=== PATIENT | female | born 1990 | race Two or more races ===

== ENCOUNTER 2019-04-02 06:57 | Emergency (ER) | payer OTHER ==
[2019-04-02 07:03] VITALS: TEMP 98.1; BMI 39.1
[2019-04-02] MEDS ORDERED: ACETAMINOPHEN 1000 MG/100 ML VIAL (NON FORMULARY) IVPB ONE (07:24)
[2019-04-02] MEDS ORDERED: ACETAMINOPHEN INJECTION 100 ML IVPB ONE (07:27)
[2019-04-02] MEDS ORDERED: morphine SULFATE 4 MG/ML VIAL ONE (07:36)
[2019-04-02] MEDS ORDERED: morphine CARPU-JECT 4 MG/1 ML DISP.SYRIN IVPUSH ONE (07:39)
--- NOTE | 2019-04-02 07:46 | PDOC ---
History of Present Illness - General Chief Complaint: Vaginal Bleeding Stated Complaint: ABD PAIN/ R/O MISSCARRIAGE Time Seen by Provider: 04/02/19 07:14 History Source: Patient Exam Limitations: No Limitations - History of Present Illness Initial Comments: 04/02/19 07:41 [id number] who is , roughly 11 weeks by LMP and took positive home test x1 in mid-March, who p/w vaginal bleeding and lower abdominal cramping since last night, severe today. Non-radiating, always present, fluctuating up to 10/10, never had this pain before. She has been having medium red vaginal bleeding with clots but no white material. No f/c/n/v/d/c, dysuria, or other symptoms. She has not been taking PNV, no OB care yet, has not had an ultrasound or seen any provider for this Past History - Past Medical History Allergies/Adverse Reactions: Allergies Allergy/AdvReac Type Severity Reaction Status Date / Time No Known Allergies Allergy Verified 04/02/19 07:03 Home Medications: Ambulatory Orders Prenat 115/Iron Fum/Folic/Dss [ 19 Tablet] 1 each PO DAILY 04/02/19 - Psycho Social/Smoking Cessation Hx Smoking History: Never smoked Hx Alcohol Use: No Drug/Substance Use Hx: No Review of Systems - Review of Systems Able to Perform ROS?: Yes Comments:: 04/02/19 09:00 GEN: no fever, chills, night sweats, generalized weakness, malaise, or unintentional weight change HEENT: no ear pain, congestion, sore throat, rhinorrhea, nosebleed, vision change, or eye pain CV: no chest pain, palpitations, lightheadedness, syncope, edema, or exercise intolerance RESP: no cough, wheezing, or SOB GI: abdominal pain, no nausea, vomiting, diarrhea, constipation, appetite change , or white/black/bloody stool : vaginal bleeding with clots, no dysuria, hematuria, frequency, incontinence , retention, or pruritis MSK: no muscle weakness or pain, no muscle wasting, no joint swelling or pain NEURO: no headache, seizure, vertigo, imbalance, numbness, tingling, focal weakness, or difficulty walking/talking PSYCH: no insomnia, behavior change, SI, HI, or substance use SKIN: no prutitis, excessive dryness, jaundice, rash, cuts, or unexplained bruises ROS otherwise negative except as noted in HPI *Physical Exam - Vital Signs Last Vital Signs Temp Pulse Resp BP Pulse Ox 98.1 F 64 18 133/76 98 04/02/19 06:57 04/02/19 06:57 04/02/19 06:57 04/02/19 06:57 04/02/19 06:57 - Physical Exam 04/02/19 09:02 GENERAL: uncomfortable appearing, intermittently writhing in pain, but answering questions appropriately HEENT: PERRLA, EOMI, moist mucous membranes NECK/BACK: no midline ttp, no spinal stepoff or deformity, no hematoma, full ROM , neck supple CARDIOVASCULAR: regular rate/rhythm, normal S1S2, no MGR, strong peripheral pulses, capillary refill <2 seconds, extremities wwp, no edema LUNGS/RESPIRATORY: no respiratory distress, CTAB GI/ABDOMEN: symmetric yels-ky-vuyc, normoactive BS, soft, moderate suprapubic ttp, no midline pulsatile masses : no CVA tenderness, pelvic with small amount of medium red blood externally and in the vaginal vault, os is 1 cm open and there is endocervical blood clot, no focal tenderness on bimanual but diffusely mildly tender EXTREMITIES: no muscle atrophy, no acute deformity SKIN: warm and dry, no pallor, no jaundice, no rash, no bruising, no skin breakdown, no cuts, no lesions NEUROLOGICAL: GCS 15, CN II-XII grossly intact, 5/5 strength proximally and distally, no facial droop ED Treatment Course - LABORATORY CBC & Chemistry Diagram: 04/02/19 07:51 04/02/19 07:51 - RADIOLOGY Radiology Studies Ordered: Category Date Time Status TRANSVAGINAL US PREG [US] Stat Ultrasound 04/02/19 07:24 Ordered Medical Decision Making - Medical Decision Making 04/02/19 07:43 First trimester female p/w vaginal bleeding and lower abdominal pain at <20 wks gestation. Initial Vital Signs Temp Pulse Resp BP Pulse Ox 98.1 F 64 18 133/76 98 04/02/19 06:57 04/02/19 06:57 04/02/19 06:57 04/02/19 06:57 04/02/19 06:57 Exam: As noted in Physical Exam section. DDX IBNLT: threatened/inevitable/incomplete/complete/septic , ectopic, PID, TOA/cervicitis, endometritis, ruptured ovarian cyst, ovarian torsion, malignancy, menorrhagia, endometriosis, rectal bleed, hematuria, constipation, fibroids, etc. W/U ordered: CBCD CMP Coags T&S UA UCx hCG Quant TVUS. TX ordered: Ofirmev, Morphine, IVF US/TRANSVAGINAL US PREG Transvaginal obstetrical ultrasound Clinical information : miscarriage The exam demonstrates a single nonviable intrauterine gestation at 8 weeks 6 days (crown-rump length 2.2 cm). No embryonic cardiac activity is identified. The gestational sac is located within the lower uterine segment extending partially into the cervical canal. The cervical canal is shortened measuring 0.7 cm in length. No subchorionic implication bleed is seen. There is no obvious uterine pathology. The ovaries appear unremarkable. No free intraperitoneal fluid is seen. Impression: Embryonic demise as noted above. 04/02/19 08:20 Patient passed POC in bathroom including intact fetus, feels much better. 04/02/19 09:11 Repeat bimanual exam os is closed, small amount of bright blood on glove. Patient remains pain free, states light cramping intermittently. Laboratory Tests 04/02/19 04/02/19 04/02/19 07:51 07:51 07:51 WBC 9.3 RBC 4.66 Hgb 13.7 Hct 39.5 MCV 84.9 MCH 29.3 MCHC 34.6 RDW 14.4 Plt Count 201 MPV 9.9 Absolute Neuts (auto) 8.0 Neutrophils % 85.6 H Lymphocytes % 8.5 Monocytes % 5.1 Eosinophils % 0.5 Basophils % 0.3 Nucleated RBC % 0 PT with INR 10.70 INR 0.91 Sodium 139 Potassium 3.4 L Chloride 109 H Carbon Dioxide 17 L Anion Gap 13 BUN 14.2 Creatinine 0.6 Est GFR (CKD-EPI)AfAm 144.78 Est GFR (CKD-EPI)NonAf 124.92 Random Glucose 120 H Calcium 9.4 Total Bilirubin 0.3 AST 17 ALT 22 Alkaline Phosphatase 79 Total Protein 7.7 Albumin 4.0 Urine Color Urine Appearance Urine pH Ur Specific [place] Urine Protein Urine Glucose (UA) Urine Ketones Urine Blood Urine Nitrite Urine Bilirubin Urine Urobilinogen Ur Leukocyte Esterase Urine WBC (Auto) Urine RBC (Auto) Urine Casts (Auto) U Epithel Cells (Auto) Urine Bacteria (Auto) 04/02/19 08:15 WBC RBC Hgb Hct MCV MCH MCHC RDW Plt Count MPV Absolute Neuts (auto) Neutrophils % Lymphocytes % Monocytes % Eosinophils % Basophils % Nucleated RBC % PT with INR INR Sodium Potassium Chloride Carbon Dioxide Anion Gap BUN Creatinine Est GFR (CKD-EPI)AfAm Est GFR (CKD-EPI)NonAf Random Glucose Calcium Total Bilirubin AST ALT Alkaline Phosphatase Total Protein Albumin Urine Color [place] Urine Appearance Cloudy Urine pH 7.0 Ur Specific [place] 1.024 Urine Protein 1+ H Urine Glucose (UA) Negative Urine Ketones Trace H Urine Blood 3+ H Urine Nitrite Negative Urine Bilirubin Negative Urine Urobilinogen 0.2 Ur Leukocyte Esterase Trace Urine WBC (Auto) 4 Urine RBC (Auto) 376 Urine Casts (Auto) 10 U Epithel Cells (Auto) 12.1 Urine Bacteria (Auto) 127.7 DISCHARGE Workup is not concerning for emergency-level pathology at this time. The Pt is appropriate for discharge home w/ close outpatient f/u. The Pt is comfortable with this plan and will follow up with their primary care provider in 1-3 days. She will also follow up with her TAPE MAKING MACHINE OPERATOR in 1-3 days. She will take primarily Tylenol for pain. Specific return precautions are discussed and they will come back to the ER if necessary. Discharge - Discharge Information Problems reviewed: Yes Clinical Impression/Diagnosis: Complete Condition: Stable Disposition: HOME - Admission No - Follow up/Referral Referrals: Aubree Lucia MD [Staff Physician] - - Patient Discharge Instructions Patient Printed Discharge Instructions: DI for Miscarriage Additional Instructions: You were seen in the ER for vaginal bleeding in . We did an exam, laboratory work on your blood and urine, and an ultrasound. After our assessment , we believe you had a miscarriage but we do not think you are having a medical emergency at this time, and you are safe to go home. Please take tylenol for any mild-moderate pain. Mild to moderate bleeding is normal, and cramping is normal too. Follow up with your senior firmware engineer and primary care provider in the next 1-3 days. We are giving you referral information for our TAPE MAKING MACHINE OPERATOR doctor. Call their clinic [facility], tell them you were seen in the ER, and tell them you need an appointment. Please come back to the ER at any time (24 hours a day) for any new or worsening symptoms, like worsening pelvic pain, discharge, high fever, headache, seizure, fainting, anemia, large amount of blood loss, or other symptoms. If you are having severe or life threatening symptoms, or symptoms that make it unsafe to drive or have someone drive you, please call 911. - Post Discharge Activity Work/Back to School Note: Back to Work
[2019-04-02 08:14] LABS: BASO % 0.3 % (0-2.0); EOS % 0.5 % (0-4.5); HEMATOCRIT 39.5 % (32.4-45.2); HEMOGLOBIN 13.7 GM/dL (10.7-15.3); LYMPH % 8.5 % (8-40); MCH 29.3 pg (25.7-33.7); MCHC 34.6 g/dl (32.0-36.0); MEAN CELL VOLUME 84.9 fl (80-96); MEAN PLT VOLUME 9.9 fl (7.5-11.1); MONO % 5.1 % (3.8-10.2); NEUT % 85.6 % (42.8-82.8); PLATELET COUNT 201 K/MM3 (134-434); RBC 4.66 M/mm3 (3.60-5.2); RDW 14.4 % (11.6-15.6); WHITE BLOOD COUNT 9.3 K/mm3 (4.0-10.0)
[2019-04-02 08:19] LABS: INR 0.91 (0.83-1.09); PROTHROMBIN TIME (PATIENT) 10.7 SEC (9.7-13.0)
[2019-04-02 08:37] LABS: BILIRUBIN,TOTAL 0.3 mg/dL (0.2-1); BLOOD UREA NITROGEN 14.2 mg/dL (7-18); CALCIUM 9.4 mg/dL (8.5-10.1); CREATININE 0.6 mg/dL (0.55-1.3); POTASSIUM 3.4 mmol/L (3.5-5.1); TOT PROT 7.7 g/dl (6.4-8.2)
[2019-04-02] MEDS ORDERED: SODIUM CHLORIDE 0.9% 500 ML INFUS.BAG IV ONE (08:42)
[2019-04-02 09:18] VITALS: BP 106/75; PULSE 70
[2019-04-02 09:21] LABS: EPI CELLS 12.1 /HPF (0-5/HPF); HYALINE CASTS 10 /lpf (0-8); URINE APPEARANCE CLOUDY; URINE BACTERIA 127.7 /hpf (NEGATIVE); URINE BILIRUBIN NEGATIVE (NEGATIVE); URINE COLOR ORANGE; URINE GLUCOSE (UA) NEGATIVE (NEGATIVE); URINE KETONE TRACE (NEGATIVE); URINE LEUK ESTERASE TRACE (NEGATIVE); URINE NITRITE NEGATIVE (NEGATIVE); URINE PROTEIN 1+ (NEGATIVE); URINE RBC 376 /hpf (0-4); URINE UROBILINOGEN 0.2 mg/dL (0.2-1.0); URINE WBC 4 /hpf (0-5)
--- NOTE | 2019-04-02 09:43 | PDOC ---
Documentation entered by Taryn Menjivar SCRIBE, acting as scribe for Luna Yarbrough MD. Luna Yarbrough MD: This documentation has been prepared by the scribe, Taryn Menjivar SCRIBE, under my direction and personally reviewed by me in its entirety. I confirm that the documentation accurately reflects all work, treatment, procedures, and medical decision making performed by me. Attending Attestation - Resident Resident Name: Nasra Fonseca - HPI HPI: 04/02/19 07:27 The patient is a 28-year-old female, , LMP: Mid-December, with a past medical history significant for asthma who presents to the emergency department with abdominal pain/cramping and vaginal bleeding since last night. The patient reports the pain became severe today. Denies urinary symptoms. Denies fever or chills. At the ED, the patient reports she passed a large clot. - Physicial Exam PE: 04/02/19 08:44 GENERAL: Awake, alert, and fully oriented, in no acute distress ABDOMEN: Soft, nontender, nondistended. No guarding, no rebound. - Medical Decision Making 04/02/19 09:38 pt presents to the ED complaining of pelvic pain and vaginal bleeding. 11 weeks by dates. Os open without significant bleeding on initial exam, US shows demise. Patient passed clots in the ED with definite passage of tissue. Os closed on reexamination. Will discharge home with FAN ENGINE ENGINEER follow up. 04/02/19 09:38
--- NOTE | 2019-04-04 15:18 | PATH ---
Surgical Pathology Report Patient Name: JOSE RAUL MILES Med. Rec. #: [id number] /Age/Gender: 1990 (Age: 28) / F Account: [id number] Location: EMERGENCY ROOM Taken: 04/02/2019 Received: 04/03/2019 Reported: 04/04/2019 Physicians: Luna Yarbrough MD Specimen(s) Received PRODUCTS OF SPONTANEOUS Clinical History Spontaneous Final Diagnosis PRODUCTS OF SPONTANEOUS : CHORIONIC VILLI PRESENT, CONSISTENT WITH PRODUCTS OF CONCEPTION. Electronically Signed Jeff Gutierrez M.D. Gross Description Received fresh, labeled with the patient's name and indicated on the requisition to be products of a spontaneous , is a 7.5 x 4.5 x 1.0 cm aggregate of reis-red soft tissue fragments. Villous tissue is identified. No definite somatic tissue is identified. A primary care sales representative portion is admitted in one cassette. 04/03/2019 saudi04/03/2019
== END 2019-04-02 12:22 | disposition home or self-care (01) ==
LOC: JER 06:57
PROC: 3E033NZ Introduction of Analgesics, Hypnotics, Sedatives into Peripheral Vein, Percutaneous Approach (ICD-10-PCS; principal; 2019-04-02)
PROC: 3E033GC Introduction of Other Therapeutic Substance into Peripheral Vein, Percutaneous Approach (ICD-10-PCS; 2019-04-02)
PROC: 3E033VG Introduction of Insulin into Peripheral Vein, Percutaneous Approach (ICD-10-PCS; 2019-04-02)
DX: O03.9 Complete or unspecified spontaneous abortion without complication (principal)
CPT/HCPCS: 36415; 76817-TC; 80053; 81003; 84702; 85025; 85610; 86850; 86900; 86901; 87086; 88305-TC; 99284-25; J0131